=== PATIENT | female | born 1965 | race Caucasian/White ===

== ENCOUNTER → 2018-08-29 08:50 | Outpatient (CLI) | payer BC | END | disposition home or self-care (01) | LOC: D.RT 08:50 | DX: J45.991 Cough variant asthma (principal); J44.9 Chronic obstructive pulmonary disease, unspecified ==

== ENCOUNTER → 2018-09-20 14:45 | Outpatient (CLI) | payer BC ==
[2018-09-20 15:48] LABS: HEMATOCRIT 57.7 % (36.0-48.0); HEMOGLOBIN 20.5 g/dL (12-16); LYMPHOCYTES 32.6 % (15-50); MCH 33.1 pg (26.0-34.0); MCHC 35.5 g/dL (31.0-37.0); MCV 93.2 fL (80.0-100.0); NEUTROPHILS 58.4 % (40-80); PLATELET COUNT 151 10x3/uL (130-400); RBC 6.19 10x6/uL (4.00-5.40); RDW 13.9 % (11.5-14.5); WBC 7.6 10x3/uL (4.8-10.8)
== END | disposition home or self-care (01) ==
LOC: D.LABREF 14:45
PROVIDERS: Internal Medicine Pulmonary Disease
DX: J45.991 Cough variant asthma (principal)